=== PATIENT | female | born 1985 | race Caucasian/White ===

== ENCOUNTER 2018-08-24 18:00 | Emergency (ER) | payer OTHER ==
[~2018-08-24] VITALS: Ht 157.5 cm; Wt 54.0 kg
[~2018-08-24 18:00] MED LIST: PREN1TAB49
[2018-08-24 18:02] VITALS: BP 144/79; PULSE 98; RESP 20; Ht 157.5 cm; Wt 54.0 kg
[2018-08-24] MEDS ORDERED: MECLIZINE 12.5 MG TAB PO ONE (20:30)
[2018-08-24] MEDS ORDERED: LORA-441 PO (21:03)
[2018-08-24] MEDS ORDERED: MECL12.574 PO (21:03)
--- NOTE | 2018-08-25 01:55 | ERD ---
ER Documentation Chief Complaint Chief Complaint REPORT ROOM SPINNING X 2 HRS, PRESENTS WITH ANXIETY HPI 32 year-old [female] coming in today with Chief Complaint: Dizziness History of Present Illness: Reports feeling anxious, numbness tingling in fingers. Patient reporting consistent dizziness for 2 hours, family member at bedside. Reports room spinning. Patient denies any precipitating events, reports never having anxiety before. Review of systems: All systems were reviewed and are negative except for what is indicated in the history of present illness. Past Medical History: [Negative for hypertension, diabetes or other medical problems] Social History: [Patient denies tobacco, alcohol, elicit drug use] Medications: [None] Allergies: [NKDA] Social Concerns: Denies ROS All systems reviewed and are negative except as per history of present illness. Medications Home Meds Active Scripts Lorazepam* (Ativan*) 0.5 Mg Tablet, 0.5 MG PO Q8H PRN for ANXIETY, #3 TAB Prov:KRISTOPHER LOPEZ V CONSULTING SYSTEMS ENGINEER 08/24/18 Meclizine Hcl* (Antivert*) 12.5 Mg Tab, 12.5 MG PO Q6H PRN for DIZZINESS, #20 TAB Prov:KRISTOPHER LOPEZ V CONSULTING SYSTEMS ENGINEER 08/24/18 Reported Medications Vits W-Ca,Fe,Fa(<1MG) () 1 Tab Tablet 06/10/10 Allergies Allergies: Coded Allergies: No Known Allergies (Verified Allergy, Mild, 08/24/18) PMhx/Soc Medical and Surgical Hx: pt denies Medical Hx, pt denies Surgical Hx History of Surgery: No Anesthesia Reaction: No Hx Neurological Disorder: No Hx Respiratory Disorders: No Hx Cardiac Disorders: No Hx Psychiatric Problems: No Hx Miscellaneous Medical Probl: No Hx Alcohol Use: No Hx Substance Use: No Hx Tobacco Use: No Smoking Status: Never smoker FmHx Family History: diabetes; No coronary disease Physical Exam Vitals Vital Signs Date Temp Pulse Resp B/P (MAP) Pulse Ox O2 O2 Flow FiO2 Time Delivery Rate 08/24/18 97.0 98 20 144/79 98 18:02 (100) Physical Exam Const: No acute distress appears anxious, Head: Atraumatic Eyes: Normal Conjunctiva ENT: Normal External Ears, Nose and Mouth; bilateral tympanic membranes opaque white Neck: Full range of motion. No meningismus. Resp: Clear to auscultation bilaterally Cardio: Regular rate and rhythm, no murmurs Abd: Soft, non tender, non distended. Normal bowel sounds Skin: No petechiae or rashes Back: No midline or flank tenderness Ext: No cyanosis, or edema Neur: Awake and alert. Cranial nerves intact. No neuro deficits. Patient speaking clear sentences. Psych: Normal Mood and Affect Results 24 hrs Current Medications Medications Dose Sig/Whit Start Time Status Last (Trade) Ordered Route PRN Stop Time Admin Dose Reason Admin Meclizine 25 mg ONCE ONCE 08/24/18 DC 08/24/18 HCl PO 20:30 20:24 (Antivert) 08/24/18 20:31 Procedures/MDM Patient with complaint of dizziness ED course includes a thorough examination and history. ED course includes EKG and medication order for meclizine Low suspicion for life-threatening neurological or cardiac emergency. Low suspicion for thyroid storm or hyperthyroidism. Vital signs stable Otherwise healthy patient presenting with constellation of symptoms likely representing uncomplicated [x vertigo] as characterized by history, physical exam findings [EKG findings]. ------ EKG: completed at 20:12 Rate/Rhythm: Normal Sinus Rhythm QRS, ST, T-waves: No changes consistent w/ acute ischemia Impression: No evidence of ischemia or arrhythmia --- Patient reassessment at 2100: Patient reports dizziness longer present after medication administration. Patient reported anxiety has decreased. No respiratory distress, otherwise relatively well appearing and nontoxic. Patient educated on diagnoses, prescriptions for meclizine and Ativan, follow-up care, return precautions. Strict return precautions given for worsening condition; questions answered discharge. Disposition for discharge with followup in 2-3 days with PCP/clinic. Inform probable referral to ENT may be indicated, informed to speak to primary care doctor during follow-up to see if it is indicated. Departure Diagnosis: Primary Impression: Anxiety Additional Impression: Vertigo Condition: Stable Patient Instructions: Your Body's Response to Anxiety, Inner Ear Problems: Causes of Dizziness (Vertigo), Anxiety Reaction, Vertigo, Unspecified Referrals: HERVE ESQUIVEL MD, ANDREINA BANEGAS,EWELINA YEE,LAUREN SCHULTE,DERECK DOMINGUEZ,SHREE GORDILLO,VINCENT LARRY,[place]TE CONNOLLY,DANYEL VIEIRA,JOANNA HANDY,[facility] YOU HAVE RECEIVED A MEDICAL SCREENING EXAM AND THE RESULTS INDICATE THAT YOU DO NOT HAVE A CONDITION THAT REQUIRES URGENT TREATMENT IN THE EMERGENCY DEPARTMENT. FURTHER EVALUATION AND TREATMENT OF YOUR CONDITION CAN WAIT UNTIL YOU ARE SEEN IN YOUR DOCTORS OFFICE WITHIN THE NEXT 1-2 DAYS. IT IS YOUR RESPONSIBILITY TO MAKE AN APPOINTMENT FOR FOLOW-UP CARE. IF YOU HAVE A PRIMARY DOCTOR --you should call your primary doctor and schedule an appointment IF YOU DO NOT HAVE A PRIMARY DOCTOR YOU CAN CALL OUR PHYSICIAN REFERRAL HOTLINE AT IF YOU CAN NOT AFFORD TO SEE A PHYSICIAN YOU CAN CHOSE FROM THE FOLLOWING [facility] [address] [facility] [facility] [address] [facility]. [facility] [address] [facility] [address] [facility]. [facility] [address] [facility]. [facility] [address] [facility]. [facility] YOU HAVE RECEIVED A MEDICAL SCREENING EXAM AND THE RESULTS INDICATE THAT YOU DO NOT HAVE A CONDITION THAT REQUIRES URGENT TREATMENT IN THE EMERGENCY DEPARTMENT. FURTHER EVALUATION AND TREATMENT OF YOUR CONDITION CAN WAIT UNTIL YOU ARE SEEN IN YOUR DOCTORS OFFICE WITHIN THE NEXT 1-2 DAYS. IT IS YOUR RESPONSIBILITY TO MAKE AN APPOINTMENT FOR FOLOW-UP CARE. IF YOU HAVE A PRIMARY DOCTOR --you should call your primary doctor and schedule and appointment IF YOU DO NOT HAVE A PRIMARY DOCTOR YOU CAN CALL OUR PHYSICIAN REFERRAL HOTLINE AT . IF YOU CAN NOT AFFORD TO SEE A PHYSICIAN YOU CAN CHOSE FROM THE FOLLOWING [facility] INSTITUTIONS: [facility] [address] [place] [address] [facility] [address] [place] [address] [facility] [address] [place] [address] Additional Instructions: Call your primary care doctor TOMORROW for an appointment during the next 2-3 days.See the doctor sooner or return here if your condition worsens before your appointment time. Follow-up with your primary primary care doctor for further care and reevaluation of signs and symptoms. You may need referral to psychologist research assistant to further investigate vertigo, so follow-up with primary care to determine if referral is needed you may call your nose and throat doctors directly to see if you can get an appointment.. KRISTOPHER LOPEZ NP Aug 25, 2018 01:55
== END 2018-08-24 21:18 | disposition home or self-care (01) ==
LOC: FTE 18:00
DX: F41.9 Anxiety disorder, unspecified (principal)
CPT/HCPCS: 93005; Z7502; Z7610

== ENCOUNTER 2019-02-10 21:40 | Emergency (ER) | payer BC, OTHER ==
[~2019-02-10] VITALS: Ht 160 cm; Wt 58.6 kg
[~2019-02-10 21:40] MED LIST changes: +ACET500C5 PO; +LORA-441 PO; +MECL12.574 PO; +TRAM50TA2 PO
[2019-02-10 22:02] VITALS: Ht 160 cm; Wt 58.6 kg
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
[2019-02-10 23:47] VITALS: BP 135/102; PULSE 68; RESP 16
== END 2019-02-10 23:48 | disposition home or self-care (01) ==
LOC: FTE 21:40
DX: S00.33XA Contusion of nose, initial encounter (principal); R40.2412 Glasgow coma scale score 13-15, at arrival to emergency department; F07.81 Postconcussional syndrome; W50.0XXA Accidental hit or strike by another person, initial encounter; Y92.9 Unspecified place or not applicable
CPT/HCPCS: 99282